=== PATIENT | male | born 1955 | race Hispanic/Latino ===

== ENCOUNTER 2017-06-19 17:50 | Emergency (ER) | payer OTHER ==
[2017-06-19 17:51] VITALS: BMI 26.6
[2017-06-19 17:59] VITALS: TEMP 97.9; O2SAT 98
--- NOTE | 2017-06-19 18:19 | C.PDOC ---
History Of Present Illness Patient is a 62 y/o male who presents to the ED with complaint of right ankle pain after twisting it at work today. Patient has had previous ankle fracture to same foot. Time Seen by Provider: 06/19/17 18:00 Chief Complaint (Nursing): Lower Extremity Problem/Injury History Per: Patient History/Exam Limitations: no limitations Onset/Duration Of Symptoms: Hrs (patient twisted ankle today at work at approximately 2:30pm. ) Current Symptoms Are (Timing): Still Present Recent travel outside of the [place]: No - Ankle/Foot Description Of Injury: Twisted Currently Unable To: Bear Weight (mildly. ) Past Medical History Reviewed: Historical Data, Nursing Documentation, Vital Signs Vital Signs: Last Vital Signs Temp 97.9 F 06/19/17 17:54 Pulse 89 06/19/17 18:27 Resp 17 06/19/17 18:27 BP 132/75 06/19/17 18:27 Pulse Ox 98 06/19/17 18:45 - Medical History PMH: Fractures Surgical History: No Surg Hx Family History: States: Unknown Family Hx - Social History Hx Alcohol Use: Yes Hx Substance Use: Yes (20 years drug free) - Immunization History Hx Tetanus Toxoid Vaccination: No Hx Influenza Vaccination: No Hx Pneumococcal Vaccination: No Review Of Systems Except As Marked, All Systems Reviewed And Found Negative. Musculoskeletal: Positive for: Foot Pain (right ankle pain) Physical Exam - Physical Exam Appears: Well, Non-toxic, No Acute Distress Skin: Warm, Dry, No Ecchymosis Head: Atraumatic, Normacephalic Eye(s): bilateral: Normal Inspection Oral Mucosa: Moist Neck: Normal ROM Chest: Symmetrical Extremity: No Calf Tenderness, Other (right ankle with normal ROM, mild tenderness medial aspect, no swelling, no bruising, normal DP pulse) Pulses: Right Dorsalis Pedis: Normal Neurological/Psych: Oriented x3, Normal Speech, Other (no focal deficits. ) ED Course And Treatment O2 Sat by Pulse Oximetry: 98 (room air) Pulse Ox Interpretation: Normal Medical Decision Making Medical Decision Making: Plan: Ankle Xray ordered. Tylenol PO ordered Xray shows no fracture as read by me. Patient refused Tylenol . Offer crutches and aircast splint, however patient does not want it. PAtient asking for work note. Disposition Counseled Patient/Family Regarding: Diagnosis, Need For Followup - Disposition Referrals: Georges Parker III, MD [Staff Provider] - Disposition: HOME/ ROUTINE Disposition Time: 18:19 Condition: STABLE Additional Instructions: Your xray was normal, no fracture. Please apply ice to area 15 minutes three times a day. Take Tylenol or Motrin as needed for pain. Follow up with orthopedic if pain persists over one week. Instructions: Ankle Sprain (ED) Forms: Work Excuse - POA Present On Arrival: None - Clinical Impression Clinical Impression: Ankle sprain - Scribe Statement The provider has reviewed the documentation as recorded by the Scribe Norma Blandon All medical record entries made by the Scribe were at my direction and personally dictated by me. I have reviewed the chart and agree that the record accurately reflects my personal performance of the history, physical exam, medical decision making, and the department course for this patient. I have also personally directed, reviewed, and agree with the discharge instructions and disposition.
[2017-06-19 18:29] VITALS: BP 132/75; PULSE 89; RESP 17
--- NOTE | 2017-06-20 10:15 | RAD ---
Right ankle three views History: Pain. Twisting injury. Comparison: None available. Findings: Prominent lateral malleolar soft tissue swelling. Prominent cortical productive change seen along the medial cortex of the distal fibula at the posterior and medial aspects suggestive for chronic deformity. Prominent patchy mixed lytic and sclerotic appearance of the distal fibula which may be the sequelae of chronic trauma. Clinical correlation. Bony productive change seen along the lateral cortex of the mid fibula with pseudoarticulation with the distal fibula, likely a chronic process. Narrowing of the tibiotalar joint space. Productive change at the dorsal aspect of the midfoot. Impression: Prominent lateral malleolar soft tissue swelling. Prominent cortical productive change seen along the medial cortex of the distal fibula at the posterior and medial aspects suggestive for chronic deformity. Prominent patchy mixed lytic and sclerotic appearance of the distal fibula which may be the sequelae of chronic trauma. Clinical correlation. Bony productive change seen along the lateral cortex of the mid fibula with pseudoarticulation with the distal fibula, likely a chronic process. Narrowing of the tibiotalar joint space. Productive change at the dorsal aspect of the midfoot. If pain persists, consider MRI.
== END 2017-06-19 18:30 | disposition home or self-care (01) ==
LOC: C.ER 17:50
DX: S93.401A Sprain of unspecified ligament of right ankle, initial encounter (principal); X50.9XXA Other and unspecified overexertion or strenuous movements or postures, initial encounter; Y92.89 Other specified places as the place of occurrence of the external cause; Y99.0 Civilian activity done for income or pay

== ENCOUNTER 2018-10-11 10:31 | Emergency (ER) | payer OTHER ==
[2018-10-11 10:31] VITALS: BMI 26.6
--- NOTE | 2018-10-11 12:44 | C.PDOC ---
History Of Present Illness 63 y/o male comes in complaining of right-sided posterior knee pain since 2 days ago. Denies and injury, chest pain, new SOB, nausea, vomiting, fever, chills, or dizziness. States pain increases with walking or when pressing the area. Time Seen by Provider: 10/11/18 11:14 Chief Complaint (Nursing): Lower Extremity Problem/Injury History Per: Patient History/Exam Limitations: no limitations Onset/Duration Of Symptoms: Days Current Symptoms Are (Timing): Still Present Past Medical History Reviewed: Historical Data, Nursing Documentation, Vital Signs Vital Signs: Last Vital Signs Temp 98 F 10/11/18 10:37 Pulse 83 10/11/18 10:37 Resp 18 10/11/18 10:37 BP 165/93 H 10/11/18 10:37 Pulse Ox 97 10/11/18 10:37 - Medical History PMH: Fractures Family History: States: No Known Family Hx - Social History Hx Alcohol Use: Yes Hx Substance Use: Yes (20 years drug free) - Immunization History Hx Tetanus Toxoid Vaccination: No Hx Influenza Vaccination: No Hx Pneumococcal Vaccination: No Review Of Systems Constitutional: Negative for: Fever, Chills Eyes: Negative for: Redness ENT: Negative for: Mouth Swelling Cardiovascular: Negative for: Chest Pain Respiratory: Negative for: Shortness of Breath Gastrointestinal: Negative for: Nausea, Vomiting, Diarrhea Genitourinary: Negative for: Dysuria, Hematuria Musculoskeletal: Positive for: Other (Right sided posterior knee pain). Negative for: Back Pain Skin: Negative for: Rash Neurological: Negative for: Weakness, Numbness, Dizziness Physical Exam - Physical Exam Appears: Non-toxic, No Acute Distress Skin: Normal Color, Warm, No Rash Head: Atraumatic, Normacephalic Eye(s): bilateral: Normal Inspection (no scleral icterus), PERRL, EOMI Oral Mucosa: Moist Neck: Normal ROM, Supple Chest: Symmetrical Cardiovascular: Rhythm Regular, No Murmur Respiratory: No Accessory Muscle Use, No Rales, No Rhonchi, No Wheezing Gastrointestinal/Abdominal: Soft, No Tenderness Extremity: Tenderness (to medial aspect of right posterior knee, no swelling, no erythema, no induration), No Calf Tenderness, Other (Increased pain when straightening knee) Neurological/Psych: Oriented x3, Normal Speech ED Course And Treatment O2 Sat by Pulse Oximetry: 97 (RA) Pulse Ox Interpretation: Normal - Other Rad Knee XR X-Ray: Read By Radiologist Interpretation: FINDINGS: BONES: No suspect fracture noted. JOINTS: Mild osteoarthrosis-medial femoral tibial and patellofemoral compartments. JOINT EFFUSION: None. OTHER FINDINGS: None. IMPRESSION: No fracture or lytic lesion. Mild osteoarthrosis. Medical Decision Making Medical Decision Making: Impression: Muscle strain Plan: --Knee XR --Duplex Scan lower extremity XR and US are negative. Patient declined any pain medications. 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 - Scribe Statement The provider has reviewed the documentation as recorded by the Jsibcasie Merrill All medical record entries made by the Jsibcasie were at my direction and personally dictated by me. I have reviewed the chart and agree that the record accurately reflects my personal performance of the history, physical exam, medical decision making, and the department course for this patient. I have also personally directed, reviewed, and agree with the discharge instructions and disposition.
[2018-10-11 13:03] VITALS: BP 147/90; PULSE 80; RESP 20; TEMP 97.9
[2018-10-11 13:12] VITALS: O2SAT 97
--- NOTE | 2018-10-11 13:20 | VASCLAB ---
Date of service: 10/11/2018 PROCEDURE: Right Lower Extremity Venous Duplex Exam. HISTORY: Leg pain PRIORS: None. TECHNIQUE: Right common femoral, femoral, popliteal and posterior tibial, peroneal and great saphenous veins were evaluated. Flow was assessed with color Doppler, compressibility, assessment of phasic flow and augmentation response. Report prepared by ALESSANDRA Jensen, RVT FINDINGS: RIGHT: 1. Common Femoral Vein: 1.1. Compressibility - Fully compressible: Thrombus - None: Flow - Phasic: Augmentation -Normal: Reflux - None. 2. Femoral Vein: 2.1. Compressibility - Fully compressible: Thrombus - None: Flow - Phasic: Augmentation -Normal: Reflux - None. 3. Popliteal Vein: 3.1. Compressibility - Fully compressible: Thrombus - None: Flow - Phasic: Augmentation -Normal: Reflux - None. 4. Posterior Tibial Vein: 4.1. Compressibility - Fully compressible: Thrombus - None: Flow - Phasic: Augmentation -Normal: Reflux - None. 5. Peroneal Vein: 5.1. Compressibility - Fully compressible: Thrombus - None: Flow - Phasic: Augmentation -Normal: Reflux - None. 6. Great Saphenous Vein: 6.1. Compressibility - Fully compressible: Thrombus -None: Flow - Phasic: Augmentation - Normal: Reflux - None. OTHER FINDINGS: IMPRESSION: No evidence of deep or superficial vein thrombosis of the right lower extremity with excellent venous flow. Normal valve function noted of the right side. Normal venous flow noted in the left common femoral vein.
--- NOTE | 2018-10-11 13:38 | RAD ---
Date of service: 10/11/2018 PROCEDURE: Right Knee Radiographs. HISTORY: pain COMPARISON: None. FINDINGS: BONES: No suspect fracture noted JOINTS: Mild osteoarthrosis-medial femoral tibial and patellofemoral compartments. JOINT EFFUSION: None. OTHER FINDINGS: None. IMPRESSION: No fracture or lytic lesion. Mild osteoarthrosis.
== END 2018-10-11 13:43 | disposition home or self-care (01) ==
LOC: C.ER 10:31
DX: S86.911A Strain of unspecified muscle(s) and tendon(s) at lower leg level, right leg, initial encounter (principal); X58.XXXA Exposure to other specified factors, initial encounter

== ENCOUNTER 2018-10-25 09:01 | Emergency (ER) | payer OTHER ==
[2018-10-25 09:02] VITALS: BMI 26.6
[2018-10-25 09:17] VITALS: RESP 18
--- NOTE | 2018-10-25 09:57 | C.PDOC ---
History Of Present Illness 63 year old male patient presents to the emergency room complaining of productive cough for a week. Associated symptoms includes vomiting, diarrhea, difficulty swallowing and sore throat for x3 days. Patient took cough medicine earlier today. Patient denies rash, recent travels, any PMHx or medications. Time Seen by Provider: 10/25/18 09:14 Chief Complaint (Nursing): Cough, Cold, Congestion History Per: Patient History/Exam Limitations: no limitations Onset/Duration Of Symptoms: Days (x1 week) Current Symptoms Are (Timing): Still Present Past Medical History Reviewed: Historical Data, Nursing Documentation, Vital Signs Vital Signs: Last Vital Signs Temp 97.7 F 10/25/18 09:10 Pulse 111 H 10/25/18 09:10 Resp 18 10/25/18 09:10 BP 166/96 H 10/25/18 09:10 Pulse Ox 94 L 10/25/18 09:10 - Medical History PMH: Fractures Family History: States: No Known Family Hx - Social History Hx Alcohol Use: Yes Hx Substance Use: Yes (20 years drug free) - Immunization History Hx Tetanus Toxoid Vaccination: No Hx Influenza Vaccination: No Hx Pneumococcal Vaccination: No Review Of Systems Except As Marked, All Systems Reviewed And Found Negative. Constitutional: Negative for: Other (recent travels; PMHx or medications) ENT: Positive for: Throat Pain, Other (difficulty swallowing ) Respiratory: Positive for: Cough (productive ) Gastrointestinal: Positive for: Vomiting, Diarrhea Skin: Negative for: Rash Physical Exam - Physical Exam Appears: Non-toxic, No Acute Distress Skin: Warm, Dry, No Rash Head: Normacephalic Eye(s): bilateral: Normal Inspection, EOMI Oral Mucosa: Moist Tongue: Normal Appearing Throat: No Drooling Neck: Normal ROM, Supple Lymphatic: Adenopathy (anterior cervical lymphadenopathy ) Chest: Symmetrical Cardiovascular: Rhythm Regular Respiratory: Normal Breath Sounds, No Rales, No Rhonchi, No Wheezing Gastrointestinal/Abdominal: Soft, No Tenderness Neurological/Psych: Oriented x3, Normal Speech ED Course And Treatment O2 Sat by Pulse Oximetry: 94 (RA) Pulse Ox Interpretation: Normal Medical Decision Making Medical Decision Making: Plans: -- Zofran Reassess: Patient is resting comfortably, tolerating PO, and is afebrile at this time. Clinical signs and symptoms are not suggestive of sepsis, meningitis, UTI, pneumonia, intra-abdominal pathology, or cellulitis. Patient will be discharged home, and instructed to follow up with his/her physician in 1-2 days without fail. Patient was instructed to return for any worsening symptoms, persistent fever, neck pain, rash, abdominal pain, or vomiting. Disposition - Disposition Referrals: [facility] [Outside] [facility] [employer] [facility] [Outside] Disposition: HOME/ ROUTINE Disposition Time: 11:37 Condition: STABLE Additional Instructions: Follow up with the medical doctor within 1-2 days. Return if worsened. Prescriptions: Azithromycin [Zithromax] 250 mg PO DAILY #4 tab Benzonatate 200 mg PO TID PRN #30 capsule PRN Reason: Cough Ibuprofen [Motrin] 600 mg PO TID #21 tab predniSONE [Prednisone] 20 mg PO BID #10 tab Instructions: Sore Throat in Adults Forms: [employer] 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 - Scribe Statement The provider has reviewed the documentation as recorded by the Lon Clay Do All medical record entries made by the Lon were at my direction and personally dictated by me. I have reviewed the chart and agree that the record accurately reflects my personal performance of the history, physical exam, medical decision making, and the department course for this patient. I have also personally directed, reviewed, and agree with the discharge instructions and disposition.
[2018-10-25 11:47] VITALS: BP 157/87; PULSE 101; TEMP 99
[2018-10-27 18:52] VITALS: O2SAT 94
== END 2018-10-25 12:05 | disposition home or self-care (01) ==
LOC: C.ER 09:01
DX: J40 Bronchitis, not specified as acute or chronic (principal); J02.9 Acute pharyngitis, unspecified; F17.210 Nicotine dependence, cigarettes, uncomplicated